=== PATIENT | male | born 1970 | race Caucasian/White ===

== ENCOUNTER 2020-09-12 09:07 | Emergency (ER) | payer OTHER, SELFPAY ==
--- NOTE | ~2020-09-12 | XR_ITS ---
EXAMINATION: XR abdomen/kub 1V EXAM DATE: 09/12/2020 09:54 INDICATION: Left-sided pain. TECHNIQUE: Frontal projection of the upper abdomen, frontal projection lower abdomen/pelvis for inter pretation. Correlation is made to CT same date. FINDINGS: There are some scattered small densities projecting over the renal contours, bilateral nep hrolithiasis. There is a 2.5 mm density in the left side of the pelvis that may be the distal left ur eteral stone seen on CT. Nonobstructive bowel gas pattern. Mild lumbar levoscoliosis. There is no org anomegaly. IMPRESSION: 1. Left distal ureteral stone likely identified. 2. Bilateral nephrolithiasis. Reviewed, dictated and finalized at location B. 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
--- NOTE | ~2020-09-12 | CT_ITS ---
EXAMINATION: CT abdomen pelvis wo con DATE: 09/12/2020 09:52 INDICATION: Left flank pain. TECHNIQUE: Computed tomography (CT) of the abdomen and pelvis was performed without intravenous contr ast. Automated exposure control and iterative reconstruction technique were employed. The dose-length product was 338.08 mGy-cm. COMPARISON: CT abdomen and pelvis 04/12/2012 FINDINGS: The visualized portions of the lung bases demonstrate mild atelectasis. No pleural effusion . The heart size is normal. No pericardial effusion. The liver, gallbladder, spleen, pancreas, and ad renal glands are normal. There are 5 stones in right kidney measuring up to 3 mm. There are 7 stones in left kidney measuring up to 4 mm. There is mild left hydroureter. There is a 3 mm stone in distal left ureter. There are no dilated loops of bowel. The appendix is normal. There are no pathologically enlarged lymph nodes. There is no free intraperitoneal fluid. There is mild thoracolumbar spondylosi s. IMPRESSION: 1. 3 mm stone in distal left ureter with mild left hydroureter. 2. Bilateral nonobstructing kidney stones. Reviewed, dictated and finalized at location A. 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
[2020-09-12 09:21] VITALS: BP 150/74; PULSE 73; RESP 18; TEMP 36.5; O2SAT 95
[2020-09-12] MEDS: MORPHINE SULFATE (*CRX) 4 MG/ML INJ IV PUSH (09:38)
[2020-09-12] MEDS: FAMOTIDINE 20 MG/2 ML VIAL IV PUSH (09:38)
[2020-09-12] MEDS: SODIUM CHLORIDE 0.9% IV 1,000 ML 999 ML IV CONT ×2 (09:38→10:30)
[2020-09-12] MEDS: ONDANSETRON INJ 4 MG/2 ML VIAL IV PUSH ×2 (09:38→12:33)
[2020-09-12 09:40] LABS: Basophils Percent Auto 0.2 % (0.2-1.2); Hematocrit 42.5 % (42.0-52.0); Immature Granulocyte Absolute 0.09 K/mm3 (0.00-0.031); Immature Granulocyte Percent A 0.7 % (0-0.5); Lymphocytes Absolute Auto 0.88 K/mm3 (0.9-3.2); Lymphocytes Percent Auto 6.5 % (18.3-44.2); Mean Corpuscular HGB Conc 35.3 g/dl (32-36); Mean Corpuscular Hemoglobin 30.8 pg (26-34); Mean Corpuscular Volume 87.3 fl (80-100); Mean Platelet Volume 10.5 fl (7.4-10.4); Monocytes Absolute Auto 0.6 K/mm3 (0.1-0.6); Monocytes Percent Auto 4.5 % (2.6-8.5); Neutrophils Percent Auto 88.1 % (45.5-73.1); Platelet Count Result 223 k/mm3 (150-375); Red Blood Count 4.87 M/mm3 (4.6-6.20); Red Cell Distribution Width 12.2 % (11.5-14.5); White Blood Count 13.6 K/mm3 (4.5-10.0)
[2020-09-12 09:51] LABS: Alanine Aminotransferase 24 U/L (4-50); Albumin Level 4.4 g/dL (3.5-5.1); Alkaline Phosphatase 70 U/L (38-126); Anion Gap 6 mmol/L (8-16); Aspartate Amino Transferase 30 U/L (17-59); Bilirubin,Total 0.7 mg/dL (0.2-1.3); Blood Urea Nitrogen 16 mg/dL (9-20); Calcium 9.5 mg/dL (8.4-10.2); Carbon Dioxide 26 mmol/L (22-30); Chloride 105 mmol/L (98-107); Estimated CRCL calculation 94 ml/min; Estimated Glomerular Filt Rate > 60; Glucose 127 mg/dL (75-110); Potassium 4.1 mmol/L (3.4-5.0); Sodium 137 mmol/L (137-145)
--- NOTE | 2020-09-12 10:00 | PC.NURSE ---
Pt unable to urinate at this time
--- NOTE | 2020-09-12 10:03 | ED.GENADULT ---
HPI - General Adult General Chief complaint: Abdominal Pain <Tj Palumbo PA-C - Last Filed: 09/12/20 13:17> Stated complaint: Kidney Stones <Tj Palumbo PA-C - Last Filed: 09/12/20 13:17> Time Seen by Provider: 09/12/20 09:08 <JESS Mai Last Filed: 09/12/20 13:17> Source: patient <Tj Palumbo PA-C - Last Filed: 09/12/20 13:17> Mode of arrival: ambulatory <Tj Palumbo PA-C - Last Filed: 09/12/20 13:17> Limitations: no limitations <Tj Palumbo PA-C - Last Filed: 09/12/20 13:17> History of Present Illness HPI narrative: Patient is a 50-year-old male who presents to emergency department for evaluation of left-sided flank pain began yesterday patient with history of frequent kidney stones patient presents in pain has not had anything for his symptoms is followed by urology notes an episode of emesis denies hematuria or other complaints presents uncomfortable but in no distress <Tj Palumbo PA-C - Last Filed: 09/12/20 13:17> Related Data Home medications: Home Medications Medication Instructions Recorded Confirmed tamsulosin mg PO 09/12/20 <Tj Palumbo PA-C - Last Filed: 09/12/20 13:17> Allergies/adverse reactions: Allergies Allergy/AdvReac Type Severity Reaction Status Date / Time No Known Allergies Allergy Mild Unverified 09/12/20 10:21 <Tj Palumbo PA-C - Last Filed: 09/12/20 13:17> Review of Systems Review of Systems: All systems reviewed & are unremarkable except as noted in HPI and below <Tj Palumbo PA-C - Last Filed: 09/12/20 13:17> [facility] Past Medical History Medical History: Medical History (Updated 09/12/20 @ 13:16 by Tj Palumbo PA-C) Urolithiasis <JESS Mai Last Filed: 09/12/20 13:17> Surgical History Surgical History: Surgical History (Updated 09/12/20 @ 10:05 by Tj Palumbo PA-C) H/O lithotripsy <JESS Mai Last Filed: 09/12/20 13:17> Social History Social History: Social History (Updated 09/12/20 @ 10:05 by Tj Palumbo PA-C) Smoking status: Never smoker Gender identity (if verbalized by the patient): Male <Tj Palumbo PA-C - Last Filed: 09/12/20 13:17> Exam Narrative: Exam Narrative: GENERAL: Well-appearing, well-nourished, uncomfortable and in no acute distress. HEAD: Normocephalic, atraumatic. EYES: PERRLA and EOMI. ENT: Nares clear, no rhinorrhea or epistaxis. Mucous membranes moist. CHEST: Clear to auscultation. No respiratory distress. No wheezes rales or rhonchi HEART: Regular rate and rhythm. No murmur heard. Normal peripheral pulses. ABDOMEN: Soft, nontender, nondistended EXTREMITIES: Normal range of motion. No edema. SKIN: Warm, dry, no rash. NEURO: No focal deficits. Alert and oriented x3. PSYCH: Normal mood and affect. <Tj Palumbo PA-C - Last Filed: 09/12/20 13:17> Course Course Emergency Course: Patient in the room at this time aware of case findings treatment plan diagnosis will be discharged home with planned follow-up with urology was given fluids and narcotics patient has had some improvement at this time will be discharged home for plan follow-up urology will contact the patient patient is aware of discussion and recommendations of urology <Tj Palumbo PA-C - Last Filed: 09/12/20 13:17> Consultations Consultation #1: Spoke with urology group Brittany recommends sending the patient home has taken their information and will contact them for outpatient follow-up <Tj Palumbo PA-C - Last Filed: 09/12/20 13:17> Date: 09/12/20 <JESS Mai Last Filed: 09/12/20 13:17> Time: 13:15 <Tj Palumbo PA-C - Last Filed: 09/12/20 13:17> Vital Signs Vital signs: Vital Signs Temperature 36.5 C 09/12/20 09:21 Pulse Rate 73 09/12/20 09:21 Respiratory Rate 18 09/12/20 09:21 Blood Pressure 150/74 H
[2020-09-12] MEDS: KETOROLAC 30 MG/ML VIAL (*BKC) IV PUSH (10:10)
--- NOTE | 2020-09-12 10:22 | PC.NURSE ---
Pt attempting to urinate at this time
[2020-09-12] MEDS: HYDROmorphone HCL INJ (*CRX) 1 MG/ML SYR IV PUSH ×2 (10:48→11:22)
[2020-09-12 10:49] LABS: Add Urine Microscopic? YES; Appearance Urine Cloudy (Clear); Bacteria Urine Trace /hpf; Bilirubin Urine Negative (Negative); Blood Urine 2+ (Negative); Color Urine Yellow (Yellow); Glucose Urine UA Negative (Negative); Ketones Urine Negative (Negative); Leukocyte Esterase Ur Trace LEU/UL (Negative); Mucus Urine Heavy /lpf; Nitrate Urine Negative (Negative); Protein Urine 1+ mg/dL (Negative); RBC Urine 51-75 /hpf (0-2); Specific Grav Ur 1.027 (1.001-1.035); Urobilinogen Urine Negative mg/dL (<2.0); WBC Urine 21-30 /hpf
[2020-09-12] MEDS: fentaNYL CITRATE INJ (*CRX) 100 MCG/2 ML VIAL IV PUSH (11:49)
[2020-09-12] MEDS: SODIUM CHLORIDE 0.9% IV 1,000 ML 999 ML (11:50)
[2020-09-12 12:04] VITALS: BP 149/99; PULSE 66; RESP 18; O2SAT 99
[2020-09-12 14:00] VITALS: BP 142/76; PULSE 64; RESP 18; O2SAT 99
== END 2020-09-12 14:01 | disposition home or self-care (01) ==
PROVIDERS: Emergency Medicine Emergency Medical Services; Emergency Provider Emergency Medicine; PCP Nurse Practitioner Family
DX: N13.2 Hydronephrosis with renal and ureteral calculous obstruction (principal); Z87.442 Personal history of urinary calculi
CPT/HCPCS: 36415; 74018; 74176; 80053; 81001; 85025; 87086; 96361; 96365; 96375; 96376; 99284; J0131; J1170; J1885; J2270; J2405; J3010; J7030

== ENCOUNTER → 2023-07-25 14:13 | Outpatient (CLI) | payer OTHER, SELFPAY ==
--- NOTE | ~2023-07-25 | MR_ITS ---
EXAMINATION: MR knee RT wo con DATE: 07/25/2023 14:46 INDICATION: Unspecified internal derangement right knee. Right knee pain. TECHNIQUE: Magnetic resonance imaging (MRI) of the right knee was performed without intravenous contr ast. Sequences included axial PD-weighted FS FSE, coronal PD-weighted FSE and PD-weighted FS FSE, sag ittal PD-weighted FSE, and sagittal T2-weighted FS FSE. COMPARISON: None. FINDINGS: Medial compartment: There is a complex tear involving body and posterior horn of medial meniscus. Medial compartment cart ilage is normal. Lateral compartment: Lateral meniscus is normal. Lateral compartment cartilage is normal. Patellofemoral compartment: The patellar cartilage is normal. There is deep partial thickness cartilage loss of central trochlea. Ligaments and tendons: The anterior and posterior cruciate ligaments are normal. Medial collateral ligament and lateral mindi ateral ligament complex are normal. There is mild patellar tendinopathy. Fluid: There is a large knee joint effusion. There is moderate prepatellar and superficial infrapatellar bur sitis. IMPRESSION: 1. Moderate chondrosis of trochlea. 2. Tear of medial meniscus. 3. Large knee joint effusion. Reviewed, dictated and finalized at location E.
== END ==
PROVIDERS: PCP Physician Assistant; Visit Provider Physician Assistant
DX: S83.241A Other tear of medial meniscus, current injury, right knee, initial encounter (principal); X58.XXXA Exposure to other specified factors, initial encounter; M25.461 Effusion, right knee
CPT/HCPCS: 73721

== ENCOUNTER 2024-01-14 10:58 | Emergency (ER) | payer OTHER, SELFPAY ==
--- NOTE | 2024-01-14 11:00 | ED.URI ---
HPI - URI/Sore Throat General Chief Complaint: Upper Respiratory Infection Stated Complaint: cold symptoms Time Seen by Provider: 01/14/24 11:24 Source: patient and RN notes reviewed Mode of arrival: ambulatory Limitations: no limitations History of Present Illness HPI Narrative: 53-year-old male presents concern for ear pain. Reports he was diagnosed with COVID on Saturday. He reports he has nasal congestion started having sharp ear pain. Denies fever MD elicited complaint: other (ear pain) Related Data Home Medications Medication Instructions Recorded Confirmed celecoxib 200 mg capsule 200 mg PO BID 01/14/24 01/14/24 cyanocobalamin (vitamin B-12) 1,000 mcg PO DAILY 01/14/24 01/14/24 1,000 mcg tablet Allergies Allergy/AdvReac Type Severity Reaction Status Date / Time guaifenesin [From Mucinex] AdvReac Intermediate Nausea and Verified 01/14/24 11:40 Vomiting pseudoephedrine AdvReac Intermediate Nausea and Verified 01/14/24 11:33 [From Sudafed] Vomiting Review of Systems Review of Systems: CONSTITUTIONAL: Reports malaise EYES: Denies visual changes, redness, or discharge. ENT: Reports rhinorrhea, congestion, otalgia CARDIOVASCULAR: Denies chest pain, palpitations, or edema. RESPIRATORY: Reports cough. Denies dyspnea. GASTROINTESTINAL: Denies abdominal pain, nausea, vomiting, diarrhea SKIN: Denies rash or itching. MUSCULOSKELETAL: Denies myalgia. NEUROLOGIC: Reports headache. All systems reviewed & are unremarkable except as noted in HPI and below PMFSH Past Medical History Medical History (Updated 01/14/24 @ 11:39 by Emily Lim NP) Urolithiasis Surgical History Surgical History (Updated 09/12/20 @ 10:05 by Tj Palumbo, ALANAC) H/O lithotripsy Social History Social History (Updated 09/12/20 @ 10:05 by Tj Palumbo, PAYumiC) Smoking status: Never smoker Gender identity (if verbalized by the patient): Male Comments At time of signature, agree with nursing past medical, surgical, social and family history. There is no relevant family history pertinent to the presenting complaint Exam Narrative: GENERAL: Well-appearing, well-nourished, and in no acute distress. HEAD: Normocephalic EYES: PERRLA, conjunctivae clear ENT: Nares clear, turbinates edematous and erythematous, clear discharge. Mucous membranes moist. TM pearly poole with dull light reflex bilaterally; no tragal tenderness. Oropharynx not erythematous without lesions. Tonsils not enlarged and without exudate, no drooling, no hoarseness, no trismus, uvula midline. NECK: Supple. No lymphadenopathy CHEST: Clear to auscultation, breath sounds equal. No wheezing, rhonchi, rales, or stridor. No respiratory distress, speaks in full sentences. HEART: Regular rate and rhythm. No murmur heard. SKIN: Warm, dry, no rash. NEURO: Alert and oriented x3. PSYCH: Normal mood and affect Course Course Emergency Course: Patient is aware of diagnosis, understands and agrees to treatment plan. Anticipatory guidance given. Patient agrees to follow-up as directed and is aware of reasons to seek care at the emergency department. Portions of this record may have been created with voice recognition software Level of Care: Express Care Visit Vital Signs Vital signs: Vital Signs Temperature 97.4 F L 01/14/24 11:15 Pulse Rate 137 H 01/14/24 11:15 Respiratory Rate 20 01/14/24 11:15 Blood Pressure 137/91 H 01/14/24 11:15 Pulse Oximetry 97 01/14/24 11:15 Oxygen Delivery Room Air 01/14/24 11:15 Temperature 97.4 F L 01/14/24 11:15 Pulse Rate 137 H 01/14/24 11:15 Respiratory Rate 20 01/14/24 11:15 Blood Pressure 137/91 H 01/14/24 11:15 Pulse Oximetry 97 01/14/24 11:15 Oxygen Delivery Room Air 01/14/24 11:15 Reviewed. MDM - URI/Sore Throat MDM Narrative Medical decision making narrative: Differential diagnosis considered: Ortiz virus, strep pharyngitis, allergic rhinitis, upper r
[2024-01-14 11:15] VITALS: BP 137/91; PULSE 137; RESP 20; TEMP 36.3; O2SAT 97
== END 2024-01-14 11:43 | disposition home or self-care (01) ==
PROVIDERS: Emergency Provider Nurse Practitioner; PCP Hospitalist
DX: H92.01 Otalgia, right ear (principal)
CPT/HCPCS: 99213; G0463